=== PATIENT | female | born 1955 | race African-American/Black ===

== ENCOUNTER 2018-11-25 18:47 | Emergency (ER) | payer MEDICAID ==
[~2018-11-25] VITALS: Ht 162.6 cm; Wt 79.4 kg
[~2018-11-25 18:47] MED LIST: ACET-2165 NG; BISA10SU61 RC; CARB1TAB21 NG; CAT.1 NG; CINA60TA NG; DOCU-144 NG; FOLI-43 NG; HEPA500015 SUBCUT; IPRA4AER INH; LACT10SO7 NG; LOPE2CAP NG; METO-290 NG; NEPH NG; PHEN100C4 NG; SSREG SUBCUT; SYN50 NG; [UNRECOGNIZED DRUG - CODE] IJ
[2018-11-25 19:00] VITALS: BP_SYST 133
[2018-11-25 19:22] VITALS: BP_SYST 133
== END 2018-11-25 19:22 | disposition home or self-care (01) ==
LOC: SED 18:47
DX: Z46.59 Encounter for fitting and adjustment of other gastrointestinal appliance and device (principal); I10 Essential (primary) hypertension; E03.9 Hypothyroidism, unspecified; Z86.79 Personal history of other diseases of the circulatory system; Z88.1 Allergy status to other antibiotic agents; Z88.8 Allergy status to other drugs, medicaments and biological substances; Z79.899 Other long term (current) drug therapy
CPT/HCPCS: 74018; 99284